=== PATIENT | female | born 1995 | race Caucasian/White ===

== ENCOUNTER 2021-09-21 15:13 | Outpatient (CLI) | payer BC ==
[2021-09-21 15:59] LABS: HEMOGLOBIN 11.9 gm/dl (12.3-15.3); RED BLOOD COUNT 4.42 M/UL (4.00-5.10); WHITE BLOOD COUNT 10.6 K/UL (4.5-11.0)
== END 2021-09-21 19:45 | disposition home or self-care (01) ==
LOC: GENOP 15:13 → OB 15:43 → GENOP 19:45
PROVIDERS: Obstetrics & Gynecology
DX: O36.8330 Maternal care for abnormalities of the fetal heart rate or rhythm, third trimester, not applicable or unspecified (principal); O99.213 Obesity complicating pregnancy, third trimester; E66.9 Obesity, unspecified; Z3A.36 36 weeks gestation of pregnancy
CPT/HCPCS: 59025; 81001; 85025; 96360; 96361; G0378; J7120

== ENCOUNTER 2021-10-08 17:25 | Inpatient (IN) | payer BC ==
[~2021-10-08] VITALS: Ht 167.6 cm; Wt 111.6 kg
[2021-10-08 19:04] LABS: RED BLOOD COUNT 4.56 M/UL (4.00-5.10); WHITE BLOOD COUNT 10.9 K/UL (4.5-11.0)
[2021-10-11] MEDS ORDERED: IBUPROFEN600 MG PO (00:41)
[2021-10-11] MEDS ORDERED: HYDROCODON-ACE1 EAC4 PO (00:41)
[2021-10-11] MEDS ORDERED: DOCUSATE SODIU100 MG PO (00:41)
[2021-10-11] MEDS ORDERED: FERROUS SULFAT325 MG PO (00:41)
== END 2021-10-12 12:34 | disposition home or self-care (01) | DRG 788 ==
LOC: GENOP 17:25 → OB 17:34
PROVIDERS: ADMIT Obstetrics & Gynecology
PROC: 10907ZC Drainage of Amniotic Fluid, Therapeutic from Products of Conception, Via Natural or Artificial Opening (ICD-10-PCS; 2021-10-10)
PROC: 3E033VJ Introduction of Other Hormone into Peripheral Vein, Percutaneous Approach (ICD-10-PCS; 2021-10-10)
PROC: 10H07YZ Insertion of Other Device into Products of Conception, Via Natural or Artificial Opening (ICD-10-PCS; 2021-10-10)
PROC: 4A1H7CZ Monitoring of Products of Conception, Cardiac Rate, Via Natural or Artificial Opening (ICD-10-PCS; 2021-10-10)
PROC: 10H073Z Insertion of Monitoring Electrode into Products of Conception, Via Natural or Artificial Opening (ICD-10-PCS; 2021-10-10)
PROC: 10D00Z1 Extraction of Products of Conception, Low, Open Approach (ICD-10-PCS; principal; 2021-10-10 23:23)
DX: O99.214 Obesity complicating childbirth (principal); Z37.0 Single live birth; E66.9 Obesity, unspecified; O99.824 Streptococcus B carrier state complicating childbirth; Z3A.38 38 weeks gestation of pregnancy; Z20.822 Contact with and (suspected) exposure to COVID-19
CPT/HCPCS: 36415; 81001; 82800; 85014; 85018; 85025; C9113; J0690; J1170; J1885; J2274; J2370; J2590; J7120; U0002

== ENCOUNTER 2022-01-14 12:26 | Emergency (ER) | payer BC, OTHER ==
[~2022-01-14 12:26] MED LIST: DOCUSATE SODIU100 MG PO; FERROUS SULFAT325 MG PO; HYDROCODON-ACE1 EAC4 PO; IBUPROFEN600 MG PO
[2022-01-14 13:19] LABS: HEMOGLOBIN 12.7 gm/dl (12.3-15.3); RED BLOOD COUNT 4.82 M/UL (4.00-5.10); WHITE BLOOD COUNT 6.5 K/UL (4.5-11.0)
[2022-01-14 13:29] LABS: BUN/CREATININE RATIO 13 (0-10)
[2022-01-14] MEDS ORDERED: MYLANTA MAXIMU355 ML PO (16:07)
[2022-01-14] MEDS ORDERED: ONDANSETRON ODT4 MG SL (16:07)
[2022-01-14] MEDS ORDERED: PROTONIX40 MG PO (16:07)
== END 2022-01-14 16:26 | disposition home or self-care (01) ==
LOC: ER1 12:26
PROVIDERS: Physician Assistant
DX: R10.13 Epigastric pain (principal); R11.2 Nausea with vomiting, unspecified; R10.816 Epigastric abdominal tenderness; K21.9 Gastro-esophageal reflux disease without esophagitis; Z91.013 Allergy to seafood
CPT/HCPCS: 80053; 81001; 83690; 84703; 85025; 96374; 96375; 99284; C9113; J2405